=== PATIENT | female | born 1965 | race African-American/Black ===

== ENCOUNTER 2020-01-28 11:03 | Outpatient (NON) | payer SELFPAY ==
[2020-01-28 22:32] LABS: SARS-CoV-2 RNA PCR Negative
== END 2020-01-28 11:04 ==
PROVIDERS: PCP Nurse Practitioner Family; Visit Provider Emergency Medicine
DX: R51.9 Headache, unspecified (principal); R11.2 Nausea with vomiting, unspecified; Z20.828 Contact with and (suspected) exposure to other viral communicable diseases
CPT/HCPCS: 87635; C9803; U0003